=== PATIENT | female | born 1950 | race American Indian/Alaskan Native ===

== ENCOUNTER 2017-03-17 07:13 | Day surgery (SDC) | payer MEDICARE, OTHER ==
[2017-03-17] MEDS ORDERED: DIPRIVAN 10 MG/ML IV ONE ×2 (08:02)
[2017-03-17] MEDS ORDERED: WATER FOR IRRIG STERILE IR ONE (08:40)
--- NOTE | 2017-03-17 09:39 | Short Stay Summary ---
Short Stay Documentation - Allergies and Medications Current Medications: Allergies No Known Allergies Allergy (Unverified 01/23/15 07:38) Home Medications Medication Instructions Recorded Confirmed Last Taken Type ALBUTEROL NEB's [Proventil 0.083%] 2.5 mg IH TID PRN 01/23/15 02/18/15 01/23/15 06:00 History Aspirin [Aspirin BABY CHEW TAB] 81 mg PO QDAY 01/23/15 02/18/15 01/15/15 10:00 History Fluticasone/Salmeterol [Advair 1 puff IH BID 01/23/15 02/18/15 01/22/15 10:00 History Diskus 500-50 mcg] Insulin Aspart [NovoLOG Flexpen] 6 unit SQ DAILY 01/23/15 02/18/15 01/20/15 08: 00 History Insulin Glargine,Hum.rec.anlog 10 unit SQ QHS 01/23/15 02/18/15 01/21/15 00:00 History [Lantus Solostar] Metformin HCl [Glucophage] 750 mg PO QDAY 01/23/15 02/18/15 01/22/15 20:00 History Montelukast [Singulair] 10 mg PO QPM 01/23/15 02/18/15 01/22/15 10:00 History Ranitidine HCl [Ranitidine 150mg 150 mg PO BID 01/23/15 02/18/15 01/22/15 10:00 History Cap] Simvastatin [Zocor] 10 mg PO QHS 01/23/15 02/18/15 01/22/15 10:00 History Valsartan/Hydrochlorothiazide 1 tab PO QDAY 01/23/15 02/18/15 01/22/15 10:00 History [Diovan Hct 80-12.5 mg] Verapamil ER [Calan Sr] 240 mg PO DAILY 01/23/15 02/18/15 01/22/15 10:00 History - Brief post op/procedure progress note Date of procedure: 03/17/17 Pre-op diagnosis: 1. Colon cancer screening 2. H/O colon polyps Post-op diagnosis: same (1. Rectal polyps 2. Internal hemorrhoids 3. Poor prep ) Procedure: Colonoscopy with biopsy Anesthesia: MAC Findings: as above Surgeon: TIMBO ORTIZ Estimated blood loss: none Pathology: list (Rectal polyps) Specimen disposition: to lab Condition: stable - Disposition Disposition: DISCHARGED TO HOME OR SELFCARE Short Stay Discharge Plan Activity: no restrictions Weight Bearing Status: Full Weight Bearing Diet: regular, low salt, diabetic Follow up with: HAL RICO MD [Primary Care Provider] - 7 Days
--- NOTE | 2017-03-17 09:42 | Anesthesia Day of Surgery ---
Anesthesia Day of Surgery - Day of Surgery Patient Examined: Yes Patient H&P Reviewed: Yes Patient is NPO: Yes Cardiac Clearance: Yes
--- NOTE | 2017-03-17 09:45 | Anesthesia Consultation ---
Anesthesia Consult and Med Hx Date of service: 03/17/17 - Airway Anesthetic Teeth Evaluation: Good, Bridges ROM Head & Neck: Adequate Mental/Hyoid Distance: Adequate Mallampati Class: Class III Intubation Access Assessment: Possibly Difficult - Pulmonary Exam CTA: Yes - Cardiac Exam Cardiac Exam: RRR - Pre-Operative Health Status ASA Pre-Surgery Classification: ASA3 Proposed Anesthetic Plan: MAC - Pre-Anesthesia Comment Pre-Anesthesia Comments: Gout - Pulmonary Hx Smoking: Yes (37 YRS, quitted 1991) Hx Asthma: Yes SOB: Yes (WITH EXCERTION) COPD: Yes (use inhaler this AM) Hx Sleep Apnea: Yes (on O2 2LPM at night) - Cardiovascular System Hx Hypertension: Yes (2004) Hx Heart Attack/AMI: No - Central Nervous System Hx Seizures: No CVA: No Hx Psychiatric Problems: Yes (Depression/anxiety) - Gastrointestinal Hx Gastroesophageal Reflux Disease: Yes - Endocrine Hx Renal Disease: Yes (CKD, stage 3) Hx End Stage Renal Disease: No 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
[2017-03-17 09:58] VITALS: BP 154/85
--- NOTE | 2017-03-17 10:37 | Post Anesthesia Evaluation ---
- Post Anesthesia Evaluation Patient Participated: Yes Airway Patent: Yes Stable Respiratory Function: Yes Nausea/Vomiting: No Temp > 96.8F: Yes Pain Manageable: Yes Adequeate Hydration: Yes Anesthesia Complications: No
[2017-03-17] MEDS ORDERED: NACL 0.9% 1000 ML 1,000 ML IV SCH (12:00)
== END 2017-03-17 07:14 | disposition home or self-care (01) ==
LOC: GIO 07:13
PROVIDERS: ATTEND Internal Medicine Gastroenterology
DX: Z09 Encounter for follow-up examination after completed treatment for conditions other than malignant neoplasm (principal); K62.1 Rectal polyp; K64.0 First degree hemorrhoids; K21.9 Gastro-esophageal reflux disease without esophagitis; J45.909 Unspecified asthma, uncomplicated; J44.9 Chronic obstructive pulmonary disease, unspecified; I12.9 Hypertensive chronic kidney disease with stage 1 through stage 4 chronic kidney disease, or unspecified chronic kidney disease; E11.22 Type 2 diabetes mellitus with diabetic chronic kidney disease; N18.3 Chronic kidney disease, stage 3 (moderate); M10.9 Gout, unspecified; E78.00 Pure hypercholesterolemia, unspecified; E66.9 Obesity, unspecified; Z68.36 Body mass index [BMI] 36.0-36.9, adult; Z90.710 Acquired absence of both cervix and uterus; Z98.890 Other specified postprocedural states; Z79.84 Long term (current) use of oral hypoglycemic drugs; Z87.891 Personal history of nicotine dependence; Z79.899 Other long term (current) drug therapy; Z87.19 Personal history of other diseases of the digestive system; Z87.01 Personal history of pneumonia (recurrent); Z82.49 Family history of ischemic heart disease and other diseases of the circulatory system
CPT/HCPCS: 45380; 82962; 88305; J2704; J7030

== ENCOUNTER 2018-11-16 07:14 | Day surgery (SDC) | payer MEDICARE ==
[2018-11-16] MEDS ORDERED: HumuLIN R ONE ×2 (08:36→10:39)
[2018-11-16] MEDS ORDERED: NACL 0.9% 1000 ML 1,000 ML IV SCH (09:00)
[2018-11-16] MEDS ORDERED: DIPRIVAN 10 MG/ML IV ONE ×3 (09:27→09:28)
--- NOTE | 2018-11-16 10:21 | Short Stay Summary ---
Short Stay Documentation - Allergies and Medications Current Medications: Allergies No Known Allergies Allergy (Verified 11/15/18 12:17) Home Medications Medication Instructions Recorded Confirmed Last Taken Type ALBUTEROL NEB's [Proventil 0.083%] 2.5 mg IH QID PRN 01/23/15 11/15/18 01/23/15 06:00 History Aspirin [Aspirin BABY CHEW TAB] 81 mg PO QDAY 01/23/15 11/16/18 11/15/18 History Fluticasone/Salmeterol [Advair 1 puff IH BID 01/23/15 11/16/18 11/15/18 History Diskus 500-50 mcg] Insulin Aspart [NovoLOG Flexpen] 6 unit SQ DAILY 01/23/15 11/15/18 01/20/15 08:00 History Insulin Glargine,Hum.rec.anlog 10 unit SQ QHS 01/23/15 11/16/18 11/15/18 History [Lantus Solostar] Metformin HCl [Glucophage] 500 mg PO BID 01/23/15 11/16/18 11/15/18 History Montelukast [Singulair] 10 mg PO QPM 01/23/15 11/15/18 11/15/18 History Simvastatin [Zocor] 10 mg PO QHS 01/23/15 11/15/18 11/15/18 History Valsartan/Hydrochlorothiazide 1 tab PO QDAY 01/23/15 11/15/18 11/15/18 History [Diovan Hct 80-12.5 mg] Verapamil ER [Calan Sr] 240 mg PO DAILY 01/23/15 11/15/18 11/15/18 History raNITIdine HCl [Ranitidine 150mg 150 mg PO BID 01/23/15 11/15/18 01/22/15 10:00 History Cap] Claritin 10 mg PO DAILY 11/15/18 11/15/18 11/15/18 History Flonase 0.05 mg INNOSTRIL BID 11/15/18 11/15/18 11/15/18 History Allopurinol 100 mg PO DAILY 11/16/18 11/16/18 11/15/18 History Biotin 5,000 mg PO DAILY 11/16/18 11/16/18 11/15/18 History Calcium 1 tab PO DAILY 11/16/18 11/16/18 11/15/18 History Ferrous Sulfate 325 mg PO DAILY 11/16/18 11/16/18 11/15/18 History Gabapentin 800 mg PO DAILY 11/16/18 11/16/18 11/15/18 History Ipratropium/Albuterol Sulfate 3 ml INHALATION DAILY 11/16/18 11/16/18 11/15/18 History Omeprazole 20 mg PO DAILY 11/16/18 11/16/18 11/15/18 History Tylenol Arthritis 650 mg PO DAILY 11/16/18 11/16/18 11/15/18 History Vitamin B-12 1,000 mg PO DAILY 11/16/18 11/16/18 11/15/18 History Active Medications Sodium Chloride (Nacl 0.9% 1000 Ml) 1,000 mls @ 50 mls/hr IV DIRECT FERCHO Last Admin: 11/16/18 08:33 Dose: 50 mls/hr Documented by: - Brief post op/procedure progress note Date of procedure: 11/16/18 Pre-op diagnosis: Colon cancer screening Post-op diagnosis: same (1. Diverticulosis coli 2. Internal hemorrhoids 3. Rectal polyps) Procedure: Colonoscopy Anesthesia: MAC Findings: as above Surgeon: TIMBO ORTIZ Estimated blood loss: none Pathology: list (Rectal polyps) Specimen disposition: to lab Condition: stable - Disposition Condition at discharge: Stable Disposition: DC-01 TO HOME OR SELFCARE Short Stay Discharge Plan Activity: no restrictions Weight Bearing Status: Full Weight Bearing Diet: regular, low salt Follow up with: HAL RICO MD [Primary Care Provider] - 7 Days
[2018-11-16 11:38] VITALS: BP 152/83
== END 2018-11-16 07:15 | disposition home or self-care (01) ==
LOC: GIO 07:14
PROVIDERS: ATTEND Internal Medicine Gastroenterology
DX: Z12.11 Encounter for screening for malignant neoplasm of colon (principal); D12.8 Benign neoplasm of rectum; K64.0 First degree hemorrhoids; K57.30 Diverticulosis of large intestine without perforation or abscess without bleeding; I13.0 Hypertensive heart and chronic kidney disease with heart failure and stage 1 through stage 4 chronic kidney disease, or unspecified chronic kidney disease; E11.22 Type 2 diabetes mellitus with diabetic chronic kidney disease; N18.3 Chronic kidney disease, stage 3 (moderate); I50.9 Heart failure, unspecified; J44.9 Chronic obstructive pulmonary disease, unspecified; G47.30 Sleep apnea, unspecified; K21.9 Gastro-esophageal reflux disease without esophagitis; M19.90 Unspecified osteoarthritis, unspecified site; E66.9 Obesity, unspecified; Z68.36 Body mass index [BMI] 36.0-36.9, adult; Z98.890 Other specified postprocedural states; Z86.010 Personal history of colon polyps; Z79.899 Other long term (current) drug therapy; Z79.4 Long term (current) use of insulin; Z79.84 Long term (current) use of oral hypoglycemic drugs; Z87.891 Personal history of nicotine dependence; Z90.710 Acquired absence of both cervix and uterus; Z90.721 Acquired absence of ovaries, unilateral; Z86.2 Personal history of diseases of the blood and blood-forming organs and certain disorders involving the immune mechanism
CPT/HCPCS: 45380; 82962; 88305; 96372; J2704; J7030; J1815